=== PATIENT | female | born 1950 | race Caucasian/White ===

== ENCOUNTER 2016-05-29 09:16 | Emergency (ER) | payer SELFPAY ==
[~2016-05-29 09:16] MED LIST: AMLO10 PO; LISI10TA PO
[2016-05-29 09:20] VITALS: BP 171/82; PULSE 97; RESP 15; TEMP 97.6; O2SAT 95
[2016-05-29] MEDS ORDERED: AMLO10TA2 PO (10:02)
[2016-05-29] MEDS ORDERED: POTA-245 PO (10:02)
[2016-05-29] MEDS ORDERED: LOSA100T2 PO (10:02)
--- NOTE | 2016-05-29 10:10 | PD ---
HPI Chief Complaint: Abdominal Pain Time Seen by Provider: 10:01 Travel History International Travel<30 days: No Contact w/Intl Traveler<30days: No Traveled to known affect area: No History of Present Illness HPI 65yo F with PMH of HTN and PSH of cholecystectomy presents to the ED with c/o periumbilical pain that is worst with coughing for a few days. Had nausea and vomiting yesterday. Increased urinary frequency. Pt has been coughing more lately. Denies any fever, chest pain, sob, dysuria, hematuria. PFSH Past Medical History Cancer: Yes (possible breast cancer (patient states it disappeared on its own)) Diabetes: No Diminished Hearing: No Hypertension: Yes Influenza Vaccination: Yes ?: Not Menopausal: Yes Past Surgical History Cholecystectomy: Yes Social History Alcohol Use: No Tobacco Use: No Substance Use: No Allergies-Medications (Allergen,Severity, Reaction): Coded Allergies: Penicillin (Verified Allergy, Severe, Anaphylaxis, 06/16/13) Reported Meds & Prescriptions Reported Meds & Active Scripts Active Bactrim DS (Sulfamethoxazole-Trimethoprim) 800-160 Mg Tab 1 Tab PO BID Reported Amlodipine (Amlodipine Besylate) 10 Mg Tab 10 Mg PO DAILY Klor-Con M20 (Potassium Chloride Microencaps) 20 Meq Tab 20 Meq PO DAILY Losartan-Hydrochlorothiazide 100-25 Mg Tab 1 Tab PO DAILY Review of Systems Except as stated in HPI: all other systems reviewed are Neg Physical Exam Narrative GENERAL: 65yo F not in distress. SKIN: Warm and dry. HEAD: Atraumatic. Normocephalic. EYES: Pupils equal and round. No scleral icterus. No injection or drainage. ENT: No nasal bleeding or discharge. Mucous membranes pink and moist. NECK: Trachea midline. No JVD. CARDIOVASCULAR: Regular rate and rhythm. No murmur appreciated. RESPIRATORY: No accessory muscle use. Clear to auscultation. Breath sounds equal bilaterally. GASTROINTESTINAL: Abdomen soft, +Periumbilical hernia above umbilicus that is easily reducible. Pain improved after reducing but comes out with coughing. MUSCULOSKELETAL: No obvious deformities. No clubbing. No cyanosis. No edema. NEUROLOGICAL: Awake and alert. No obvious cranial nerve deficits. Motor grossly within normal limits. Normal speech. PSYCHIATRIC: Appropriate mood and affect; insight and judgment normal. Data Data Last Documented VS Vital Signs Date Time Temp Pulse Resp B/P Pulse Ox O2 Delivery O2 Flow Rate FiO2 05/29/16 09:20 97.6 97 15 171/82 95 Orders Chest, Single Ap (05/29/16 ) Complete Blood Count With Diff (05/29/16 10:07) Comprehensive Metabolic Panel (05/29/16 10:07) Lipase (05/29/16 10:07) Urinalysis - C+S If Indicated (05/29/16 10:07) Ketorolac Inj (Toradol Inj) (05/29/16 10:15) Urine Culture (05/29/16 10:20) Ciprofloxacin 400 Mg Premix (Cipro 400 M (05/29/16 11:30) Potassium Chloride (Kcl) (05/29/16 11:30) Labs Laboratory Tests Test 05/29/16 05/29/16 10:20 10:30 Urine Color LIGHT-YELLOW Urine Turbidity HAZY Urine pH 8.0 Urine Specific [place] 1.007 Urine Protein NEG mg/dL Urine Glucose (UA) NEG mg/dL Urine Ketones NEG mg/dL Urine Occult Blood NEG Urine Nitrite NEG Urine Bilirubin NEG Urine Urobilinogen LESS THAN 2.0 MG/DL Urine Leukocyte Esterase LARGE Urine RBC 5 /hpf Urine WBC 23 /hpf Urine Squamous Epithelial 3 /hpf Cells Urine Amorphous Sediment RARE Urine Bacteria OCC /hpf Microscopic Urinalysis Comment CULTURE INDICATED White Blood Count 8.6 TH/MM3 Red Blood Count 4.50 MIL/MM3 Hemoglobin 13.5 GM/DL Hematocrit 40.3 % Mean Corpuscular Volume 89.5 FL Mean Corpuscular Hemoglobin 30.0 PG Mean Corpuscular Hemoglobin 33.5 % Concent Red Cell Distribution Width 13.8 % Platelet Count 333 TH/MM3 Mean Platelet Volume 7.7 FL Neutrophils (%) (Auto) 69.0 % Lymphocytes (%) (Auto) 24.6 % Monocytes (%) (Auto) 4.6 % Eosinophils (%) (Auto) 1.1 % Basophils (%) (Auto) 0.7 % Neutrophils # (Auto) 6.0 TH/MM3 Lymphocytes # (Auto) 2.1 TH/MM3 Monocytes # (Auto) 0.4 TH/MM3 Eosinophils # (Auto) 0.1 TH/MM3 Basophils # (Auto) 0.1 TH/MM3 CBC Comment DIFF FINAL Differential Comment Sodium Level 140 MEQ/L Potassium Level 3.3 MEQ/L Chloride Level 102 MEQ/L Carbon Dioxide Level 30.2 MEQ/L Anion Gap 8 MEQ/L Blood Urea Nitrogen 7 MG/DL Creatinine 0.54 MG/DL Estimat Glomerular Filtration 114 ML/MIN Rate Random Glucose 122 MG/DL Calcium Level 9.1 MG/DL Total Bilirubin 0.7 MG/DL Aspartate Amino Transf 17 U/L (AST/SGOT) Alanine Aminotransferase 26 U/L (ALT/SGPT) Alkaline Phosphatase 96 U/L Total Protein 8.4 GM/DL Albumin 3.6 GM/DL Lipase 100 U/L [facility] Medical Decision Making Medical Screen Exam Complete: Yes Emergency Medical Condition: Yes Differential Diagnosis Umbilical hernia vs. UTI vs. gastritis Narrative Course 65yo F well appearing with periumbilical pain and increased urinary frequency. On physical exam, pt has a umbilical hernia that is easily reducible and has no pain after I reduced it. Labs reviewed, no leukocytosis. K: 3.3, replaced orally. Creatinine normal. UA showed large leukocyte with 23 WBC and cipro 400mg IV given. CXR showed bibasilar atelectasis. VS stable. Will give medication for cough and refer pt to surgery as outpatient for options for umbilical hernia repair. Return precautions given. Diagnosis Primary Impression: Umbilical hernia without obstruction or gangrene Additional Impression: UTI (urinary tract infection) Qualified Code: N39.0 - Urinary tract infection without hematuria, site unspecified Referrals: Abilio Gómez MD 3 days umbilical hernia Patient Instructions: General Instructions Departure Forms: Tests/Procedures Additional Instructions: Please return to the ED if your symptoms worsen. Please follow up with general surgery for umbilical hernia repair options. Med/Other Pt SpecificInfo: Prescription(s) given Scripts Dextromethorphan Polistirex Liq (Robitussin 12 Hour Cough Liq)30 Mg/5 Ml Sus5 Ml PO Q12H PRN (COUGH) 5 Days Ref 0 Prov:KatherynCamelia DO 05/29/16 Sulfamethoxazole-Trimethoprim (Bactrim DS)800-160 Mg Tab1 Tab PO BID #14 TAB Ref 0 Prov:Camelia Campa DO 05/29/16 Disposition: 01 DISCHARGE HOME Condition: Stable Camelia Campa DO May 29, 2016 10:10
[2016-05-29] MEDS ORDERED: KETOROLAC TROMETHAMINE 30 MG/ML (IVP) VIAL IV PUSH ONE (10:15)
--- NOTE | 2016-05-29 10:39 | RADRPT ---
EXAM DATE/TIME: 05/29/2016 10:13 [place] COMPARISON: No previous studies available for comparison. INDICATIONS : Shortness of breath. MEDICAL HISTORY : None. SURGICAL HISTORY : None. ENCOUNTER: Initial ACUITY: 1 day PAIN SCORE: 0/10 LOCATION: Bilateral chest FINDINGS: There are bibasilar platelike infiltrates suggestive of atelectasis. The upper lung keith are clear. No pleural effusions. The heart size is within normal limits. The bony structures are grossly intact . CONCLUSION: Bibasilar atelectasis. Kofi Jarvis MD on May 29, 2016 at 10:36 Board Certified Radiologist. This report was verified electronically.
[2016-05-29 10:47] LABS: BASOPHIL # 0.1 TH/MM3 (0-0.2); BASOPHIL % 0.7 % (0.0-2.0); EOSINOPHIL # 0.1 TH/MM3 (0-0.4); EOSINOPHIL % 1.1 % (0.0-4.0); HEMATOCRIT 40.3 % (35.0-46.0); HEMO FLAGS DIFF FINAL; LYMPH % 24.6 % (9.0-44.0); LYMPHOCYTE # 2.1 TH/MM3 (1.0-4.8); MEAN CELL VOLUME 89.5 FL (80.0-100.0); MEAN CORPUSCULAR HGB CONC 33.5 % (32.0-36.0); MONO % 4.6 % (0.0-8.0); PLATELET COUNT 333 TH/MM3 (150-450); RED CELL DISTRIBUTION WIDTH 13.8 % (11.6-17.2); WHITE BLOOD COUNT 8.6 TH/MM3 (4.0-11.0)
[2016-05-29 10:49] LABS: BACTERIA, URINE OCC /hpf; BLOOD, URINE NEG (NEG); GLUCOSE,URINE NEG (NEG); KETONE, URINE NEG (NEG); NITRITE,URINE NEG (NEG); SQUAMOUS EPITHELIAL CELL URINE 3 /hpf (0-5); URINE COLOR LIGHT-YELLOW (YELLW/STRAW)
[2016-05-29 10:50] LABS: COMMENT (UR) CULTURE INDICATED; CULTURE IF INDICATED CULTURE INDICATED
[2016-05-29 11:10] LABS: ANION GAP 8 MEQ/L (5-15); AST (GOT) 17 U/L (15-37); BICARBONATE 30.2 MEQ/L (21.0-32.0); BLOOD UREA NITROGEN 7 MG/DL (7-18); CHLORIDE 102 MEQ/L (98-107); GLOMERULAR FILTRATION RATE 114 ML/MIN (>89); POTASSIUM 3.3 MEQ/L (3.5-5.1); SODIUM (NA) 140 MEQ/L (136-145)
[2016-05-29 11:13] LABS: ALKALINE PHOSPHATASE 96 U/L (45-117); ALT (GPT) 26 U/L (10-53); TOTAL BILIRUBIN ADULT 0.7 MG/DL (0.2-1.0)
[2016-05-29] MEDS ORDERED: CIPROFLOXACIN 400 MG PREMIX 200 ML IV ONE (11:30)
[2016-05-29] MEDS ORDERED: POTASSIUM CHLORIDE 20 MEQ CONTROLLED RELEASE TAB PO ONE (11:30)
[2016-05-29] MEDS ORDERED: BACT800T5 PO (12:03)
[2016-05-29] MEDS ORDERED: DEXT1SUS PO (12:04)
[2016-05-29 13:20] VITALS: BP 130/59
== END 2016-05-29 13:24 | disposition home or self-care (01) ==
LOC: NEPC 09:16
DX: K42.9 Umbilical hernia without obstruction or gangrene (principal); N39.0 Urinary tract infection, site not specified; R05 Cough; I10 Essential (primary) hypertension
CPT/HCPCS: 71010; 80053; 81001; 83690; 85025; 87086; 96365; 96375; 99284; J0744; J1885